=== PATIENT | male | born 1970 | race Caucasian/White ===

== ENCOUNTER 2025-04-11 13:31 | Emergency (ER) | payer MEDICAID, OTHER ==
[~2025-04-11] VITALS: Ht 172.7 cm; Wt 63.6 kg
[~2025-04-11 13:31] MED LIST: RISP0.5T39 PO
[2025-04-11 13:55] VITALS: TEMP 97.8
[2025-04-11 14:07] VITALS: BP 135/72; PULSE 72; RESP 16; O2SAT 99
== END 2025-04-11 15:01 ==
LOC: EMS 13:31
DX: Z46.6 Encounter for fitting and adjustment of urinary device (principal); E11.9 Type 2 diabetes mellitus without complications; Z79.899 Other long term (current) drug therapy
CPT/HCPCS: 51705; 99284; Z7502